=== PATIENT | female | born 1980 | race Caucasian/White ===

== ENCOUNTER 2020-08-16 15:44 | Emergency (ER) | payer OTHER ==
[~2020-08-16] VITALS: Ht 167.6 cm; Wt 79.4 kg
[2020-08-16 17:13] VITALS: BP 116/72
== END 2020-08-16 17:14 | disposition home or self-care (01) ==
LOC: M.ERS 15:44
DX: B34.9 Viral infection, unspecified (principal); Z20.828 Contact with and (suspected) exposure to other viral communicable diseases; J45.909 Unspecified asthma, uncomplicated